=== PATIENT | female | born 1960 | race American Indian/Alaskan Native ===

== ENCOUNTER 2021-11-26 10:55 | Observation (INO) | payer MEDICARE, MEDICAID ==
--- NOTE | 2021-11-26 12:02 | Emergency Department Report ---
HPI - General Chief Complaint: Dyspnea/Respdistress Time Seen by Provider: 11/26/21 11:50 - HPI HPI: The patient just moved from [place] and she has not been able to get dialysis here. The last time she had dialysis was 6 days ago. The patient cur rently feels slightly short of breath but she denies chest pain nausea vomiting fever diarrhea or any other associated symptoms. Exertion makes it worse and rest makes it better. ED Past Medical Hx - Past Medical History Previous Medical History?: Yes Hx Hypertension: Yes Hx Renal Disease: Yes (HD [id number]) Additional medical history: right knee pain - Surgical History Past Surgical History?: Yes Hx Cholecystectomy: Yes Additional Surgical History: Right knee replacement, Thyroidectomy - Social History Smoking Status: Never Smoker Substance Use Type: Prescribed - Medications Home Medications: Home Medications Medication Instructions Recorded Confirmed Last Taken Type B,C/Ferrous Fum/FA/D3/Zinc Ox 1 tab PO QDAY 11/26/21 11/26/21 11/24/21 History [Prorenal Multivitamin Tablet] Calcium Acetate 667 mg PO QDAY 11/26/21 11/26/21 11/24/21 History Losartan [Cozaar] 100 mg PO QDAY 11/26/21 11/26/21 11/24/21 History carvediloL [Coreg] 6.25 mg PO BID 11/26/21 11/26/21 11/24/21 History ED Review of Systems ROS: Stated complaint: NO DIALYSIS SINCE Other details as noted in HPI Comment: All other systems reviewed and negative Physical Exam - Physical Exam Vital Signs: Vital Signs 11/26/21 11:03 Temperature 97.8 F Pulse Rate 90 Respiratory 22 Rate Blood Pressure 210/124 O2 Sat by Pulse 88 Oximetry Physical Exam: Physical Exam Constitutional: General: No acute distress. Appearance: No diaphoresis. HENT: Head: Normocephalic. Eyes: Pupils: Pupils are equal, round, and reactive to light. Neck: Musculoskeletal: Normal range of motion. Cardiovascular: Rate and Rhythm: Normal rate and regular rhythm. Pulses: Intact distal pulses. Heart sounds: Normal heart sounds. No murmur. Pulmonary: Effort: No respiratory distress. Breath sounds: No wheezing or rales. Chest: Chest wall: No tenderness. Abdominal: General: There is no distension. Palpations: There is no mass. Tenderness: There is no abdominal tenderness. There is no guarding or rebound. Musculoskeletal: Normal range of motion. The patient has an intact left arm AV fistula with a thrill. Skin: General: Skin is warm and dry. Neurological: Mental Status: Alert and oriented to person, place, and time. Psychiatric: Mood and Affect: Mood and affect normal. Cognition and Memory: Memory normal. Judgment: Judgment normal. ED Course Vital Signs 11/26/21 11:03 Temperature 97.8 F Pulse Rate 90 Respiratory 22 Rate Blood Pressure 210/124 O2 Sat by Pulse 88 Oximetry - Reevaluation(s) Reevaluation #1: 11/26/21 13:18 The patient was found to have severe hyperkalemia at 7.3. We treated her hyperkalemia. She will need to come to the hospital for hemodialysis. 11/26/21 13:50 EKG done interpreted at 1339 shows a rate of 75, normal the rhythm is sinus rhythm, normal. There is probably left atrial enlargement with LVH and repolarization abnormality. ED Medical Decision Making - Lab Data Result diagrams: 11/26/21 12:20 11/26/21 12:20 Critical care attestation.: If time is entered above; I have spent that time in minutes in the direct care of this critically ill patient, excluding procedure time. ED Disposition Clinical Impression: ESRD (end stage renal disease) on dialysis Disposition: 02 [facility]ORT TERM [facility]OSPITAL Is pt being admited?: Yes Does the pt Need Aspirin: No Condition: Critical Referrals: BRUCE SERRANO MD [Primary Care Provider] - 3-5 Days
--- NOTE | 2021-11-26 12:49 | XRay Report ---
CHEST 1 VIEW 11/26/2021 11:53 AM INDICATION / CLINICAL INFORMATION: Chest Pain. COMPARISON: None available. FINDINGS: SUPPORT DEVICES: None. HEART / MEDIASTINUM: Cardiomegaly LUNGS / PLEURA: Mild interstitial opacities in the lung bases. No pneumothorax. ADDITIONAL FINDINGS: Vascular stent projects over the left scapula. IMPRESSION: 1. Cardiomegaly with mild interstitial opacities favoring pulmonary edema. Signer Name: Ashwin Green MD Signed: 11/26/2021 12:44 PM Workstation Name: [id number]
[2021-11-26 12:53] LABS: Basophils # (Auto) 0.1 K/mm3 (0.0-0.1); Eosinophils # (Auto) 0.3 K/mm3 (0.0-0.4); Eosinophils % (Auto) 5.6 % (0.0-4.3); Hematocrit 33.9 % (30.3-42.9); Hemoglobin 11.2 gm/dl (10.1-14.3); Lymphocytes # (Auto) 1.1 K/mm3 (1.2-5.4); Lymphocytes % (Auto) 20.8 % (13.4-35.0); Mean Corpuscular HGB Conc 33 % (30-34); Mean Corpuscular Volume 96 fl (79-97); Monocytes # (Auto) 0.4 K/mm3 (0.0-0.8); Monocytes % (Auto) 8.4 % (0.0-7.3); Platelet Count 171 K/mm3 (140-440); Red Blood Count 3.54 M/mm3 (3.65-5.03); Red Cell Distribution Width 18.2 % (13.2-15.2)
[2021-11-26 13:10] LABS: Calcium 7.6 mg/dL (8.4-10.2)
[2021-11-26] MEDS ORDERED: SODIUM BICARB 8.4% 50 MEQ/50 ML SYRINGE IV ONE (13:16)
[2021-11-26] MEDS ORDERED: DEXTROSE 50% IN WATER (25GM) 50 ML SYRINGE IV ONE (13:17)
[2021-11-26] MEDS ORDERED: INSULIN REGULAR, HUMAN 100 UNITS/1 ML IV ONE (13:17)
[2021-11-26 13:34] LABS: Chol/HDL Ratio 3.85 %
[2021-11-26] MEDS ORDERED: ACETAMINOPHEN 325 MG TAB PO PRN (13:55)
[2021-11-26] MEDS ORDERED: HYDROcodone/ACETAMINOPHEN 5-325 MG TAB PO PRN (13:55)
[2021-11-26] MEDS ORDERED: ONDANSETRON 4 MG/2 ML INJ IV PRN (13:55)
[2021-11-26] MEDS ORDERED: LOSARTAN 50 MG TAB PO ONE (14:32)
[2021-11-26 16:40] LABS: Hepatitis B Surface Antigen Non-Reactive (Negative); Hepatitis C Virus Antibody Non-Reactive (NonReactive)
[2021-11-26 19:05] VITALS: BP 168/90
[2021-11-27] MEDS ORDERED: ENOXAPARIN 40 MG/0.4 ML INJ SUB-Q SCH (10:00)
--- NOTE | 2021-11-27 15:31 | History and Physical Report ---
History of Present Illness Date of examination: 11/27/21 Date of admission: 11/26/21 13:55 Chief complaint: SOB for 1 day History of present illness: HPI The patient just moved from [place] and she has not been able to get dialysis here. The last time she had dialysis was 6 days ago. The patient currently feels slightly short of breath but she denies chest pain nausea vomiting fever diarrhea or any other associated symptoms. Exertion makes it worse and rest makes it better. - Past Medical History --Hypertension: Yes --Renal Disease: Yes (HD ) --Additional medical history: right knee pain - Surgical History --Past Surgical History?: Yes --Cholecystectomy: Yes --Additional Surgical History: Right knee replacement, Thyroidectomy - Social History --Smoking Status: Never Smoker --Substance Use Type: Prescribed - Medications --Home Medications: Home Medications Medication Instructions Recorded Confirmed Last Taken Type B,C/Ferrous Fum/FA/D3/Zinc Ox 1 tab PO QDAY 11/26/21 11/26/21 11/24/21 History [Prorenal Multivitamin Tablet] Calcium Acetate 667 mg PO QDAY 11/26/21 11/26/21 11/24/21 History Losartan [Cozaar] 100 mg PO QDAY 11/26/21 11/26/21 11/24/21 History carvediloL [Coreg] 6.25 mg PO BID 11/26/21 11/26/21 11/24/21 History Review of Systems ROS: Stated complaint: NO DIALYSIS SINCE Other details as noted in HPI Comment: All other systems reviewed and negative Medications and Allergies Allergies Allergy/AdvReac Type Severity Reaction Status Date / Time YOANNA Inhibitors Allergy Hives Verified 11/26/21 13:17 chlorhexidine Allergy Itching Verified 11/26/21 13:17 latex Allergy Itching Verified 11/26/21 13:17 vancomycin Allergy Hives Verified 11/26/21 13:17 Home Medications Medication Instructions Recorded Confirmed Last Taken Type B,C/Ferrous Fum/FA/D3/Zinc Ox 1 tab PO QDAY 11/26/21 11/26/21 11/24/21 History [Prorenal Multivitamin Tablet] Calcium Acetate 667 mg PO QDAY 11/26/21 11/26/21 11/24/21 History Losartan [Cozaar] 100 mg PO QDAY 11/26/21 11/26/21 11/24/21 History carvediloL [Coreg] 6.25 mg PO BID 11/26/21 11/26/21 11/24/21 History Exam - Constitutional Vitals: Temp Pulse Resp BP Pulse Ox 98.0 F 69 18 168/90 92 11/26/21 18:55 11/26/21 18:55 11/26/21 18:55 11/26/21 21:39 11/26/21 21:33 General appearance: Present: no acute distress, well-nourished - EENT Eyes: Present: PERRL ENT: hearing intact, clear oral mucosa - Neck Neck: Present: supple, normal ROM - Respiratory Respiratory effort: normal Respiratory: bilateral: CTA - Cardiovascular Heart rate: 76 Rhythm: regular Heart Sounds: Present: S1 & S2. Absent: rub, click - Extremities Extremities: no ischemia, pulses symmetrical, No edema Peripheral Pulses: within normal limits - Abdominal General gastrointestinal: Present: soft, non-tender, non-distended, normal bowel sounds Female genitourinary: Present: normal - Integumentary Integumentary: Present: clear, warm, dry - Musculoskeletal Musculoskeletal: gait normal, strength equal bilaterally - Psychiatric Psychiatric: appropriate mood/affect, intact judgment & insight - Neurologic Neurologic: CNII-XII intact, moves all extremities - Allied Health Allied health notes reviewed: nursing, case management HEART Score - HEART Score Age: 45-65 Troponin: Troponin T 0.062 ng/mL (0.00-0.029) H 11/26/21 12:20 - Critical Actions Critical Actions: 4-6 pts:12-16.6% risk of adverse cardiac event. Should be admitted Results - Labs CBC & Chem 7: 11/26/21 12:20 11/26/21 12:20 Labs: Laboratory Last Values WBC 5.3 K/mm3 (4.5-11.0) 11/26/21 12:20 RBC 3.54 M/mm3 (3.65-5.03) L 11/26/21 12:20 Hgb 11.2 gm/dl (10.1-14.3) 11/26/21 12:20 Hct 33.9 % (30.3-42.9) 11/26/21 12:20 MCV 96 fl (79-97) 11/26/21 12:20 MCH 32 pg (28-32) 11/26/21 12:20 MCHC 33 % (30-34) 11/26/21 12:20 RDW 18.2 % (13.2-15.2) H 11/26/21 12:20 Plt Count 171 K/mm3 (140-440) 11/26/21 12:20 Lymph % (Auto) 20.8 % (13.4-35.0) 11/26/21 12:20 [place] % (Auto) 8.4 % (0.0-7.3) H 11/26/21 12:20 Eos % (Auto) 5.6 % (0.0-4.3) H 11/26/21 12:20 Baso % (Auto) 1.0 % (0.0-1.8) 11/26/21 12:20 Lymph # (Auto) 1.1 K/mm3 (1.2-5.4) L 11/26/21 12:20 [place] # (Auto) 0.4 K/mm3 (0.0-0.8) 11/26/21 12:20 Eos # (Auto) 0.3 K/mm3 (0.0-0.4) 11/26/21 12:20 Baso # (Auto) 0.1 K/mm3 (0.0-0.1) 11/26/21 12:20 Seg Neutrophils % 64.2 % (40.0-70.0) 11/26/21 12:20 Seg Neutrophils # 3.4 K/mm3 (1.8-7.7) 11/26/21 12:20 Sodium 136 mmol/L (137-145) L 11/26/21 12:20 Potassium 7.3 mmol/L (3.6-5.0) H* 11/26/21 12:20 Chloride 93.1 mmol/L (98-107) L 11/26/21 12:20 Carbon Dioxide 14 mmol/L (22-30) L 11/26/21 12:20 Anion Gap 36 mmol/L 11/26/21 12:20 BUN 139 mg/dL (7-17) H 11/26/21 12:20 Creatinine 19.4 mg/dL (0.6-1.2) H 11/26/21 12:20 Estimated GFR 2 ml/min 11/26/21 12:20 BUN/Creatinine Ratio 7 % 11/26/21 12:20 Glucose 93 mg/dL (65-100) 11/26/21 12:20 Calcium 7.6 mg/dL (8.4-10.2) L 11/26/21 12:20 Total Bilirubin 0.30 mg/dL (0.1-1.2) 11/26/21 12:20 AST 26 units/L (5-40) 11/26/21 12:20 ALT 21 units/L (7-56) 11/26/21 12:20 Alkaline Phosphatase 146 units/L (35-129) H 11/26/21 12:20 Troponin T 0.062 ng/mL (0.00-0.029) H 11/26/21 12:20 NT-Pro-B Natriuret Pep 46182 pg/mL (0-900) H 11/26/21 12:20 Total Protein 7.2 g/dL (6.3-8.2) 11/26/21 12:20 Albumin 4.0 g/dL (3.9-5) 11/26/21 12:20 Albumin/Globulin Ratio 1.3 % 11/26/21 12:20 Triglycerides 90 mg/dL (2-149) 11/26/21 12:20 Cholesterol 185 mg/dL (50-199) 11/26/21 12:20 LDL Cholesterol Direct 122 mg/dL (50-130) 11/26/21 12:20 HDL Cholesterol 48 mg/dL (40-59) 11/26/21 12:20 Cholesterol/HDL Ratio 3.85 % 11/26/21 12:20 Hep Bs Antigen Non-reactive (Negative) 11/26/21 15:41 Hep B Core IgM Ab Non-reactive (NonReactive) 11/26/21 15:41 Hepatitis C Antibody Non-reactive (NonReactive) 11/26/21 15:41 - Imaging and Cardiology EKG: report reviewed Assessment and Plan Advance Directives: Yes (Full code) VTE prophylaxis?: Chemical Plan of care discussed with patient/family: Yes - Patient Problems (1) Volume overload Status: Acute Plan to address problem: Emergent HD (2) ESRD (end stage renal disease) on dialysis Status: Acute Plan to address problem: Emergent hemodialysis (3) Hyperkalemia Status: Acute Plan to address problem: Emergent hemodialysis with low sodium bath (4) HTN (hypertension) Status: Chronic Qualifiers: Hypertension type: primary hypertension Qualified Code(s): I10 - Essential (primary) hypertension Plan to address problem: Continue antihypertensives (5) DVT prophylaxis Status: Acute Plan to address problem: On heparin and GI prophylaxis
--- NOTE | 2021-11-27 16:13 | Discharge Summary ---
Providers - Providers Date of Admission: 11/26/21 13:55 Date of discharge: 11/26/21 Attending physician: ESTHELA GENAO 11/26/21 13:53 Consult to Physician [CONS] Stat Comment: Consulting Provider: EDY REYNOSO Physician Instructions: Reason For Exam: ESRD w Hyperkalemia Primary care physician: BRUCE SERRANO Hospitalization Condition: Stable Hospital course: The patient just moved from [place] and she has not been able to get dialysis here. The last time she had dialysis was 6 days ago. The patient currently feels slightly short of breath but she denies chest pain nausea vomiting fever diarrhea or any other associated symptoms. Exertion makes it worse and rest makes it better. 11/26/2021 Postdialysis patient feels a lot better Wants to go home Repeat potassium level pending - Imaging and Cardiology EKG: report reviewed Assessment and Plan Advance Directives: Yes (Full code) VTE prophylaxis?: Chemical Plan of care discussed with patient/family: Yes - Patient Problems (1) Volume overload Status: Acute Plan to address problem: Had emergent HD (2) ESRD (end stage renal disease) on dialysis Status: Acute Plan to address problem: Had emergent hemodialysis (3) Hyperkalemia Status: Acute Plan to address problem: had emergent hemodialysis with low sodium bath (4) HTN (hypertension) Status: Chronic Qualifiers: Hypertension type: primary hypertension Qualified Code(s): I10 - Essential (primary) hypertension Plan to address problem: Continue antihypertensives (5) DVT prophylaxis Status: Acute Plan to address problem: On heparin and GI prophylaxis Disposition: 01 HOME / SELF CARE / HOMELESS Final Discharge Diagnosis (Prints w/discharge instructions): Volume overload. End-stage renal disease with hemodialysis. Hypertension. Hyperkalemia Time spent for discharge: 31 minutes - Discharge Diagnoses (1) Volume overload Status: Acute (2) ESRD (end stage renal disease) on dialysis Status: Acute (3) Hyperkalemia Status: Acute (4) HTN (hypertension) Status: Chronic Qualifiers: Hypertension type: primary hypertension Qualified Code(s): I10 - Essential (primary) hypertension (5) DVT prophylaxis Status: Acute Core Measure Documentation - Palliative Care Palliative Care/ Comfort Measures: Not Applicable - Core Measures Any of the following diagnoses?: none Exam - Constitutional Vitals: Temp Pulse Resp BP Pulse Ox 98.0 F 69 18 168/90 92 11/26/21 18:55 11/26/21 18:55 11/26/21 18:55 11/26/21 21:39 11/26/21 21:33 General appearance: Present: no acute distress, well-nourished - EENT Eyes: Present: PERRL ENT: hearing intact, clear oral mucosa - Neck Neck: Present: supple, normal ROM - Respiratory Respiratory effort: normal Respiratory: bilateral: CTA - Cardiovascular Heart rate: 78 Rhythm: regular Heart Sounds: Present: S1 & S2. Absent: rub, click - Extremities Extremities: no ischemia, pulses intact, pulses symmetrical, No edema Peripheral Pulses: within normal limits - Abdominal General gastrointestinal: Present: soft, non-tender, non-distended, normal bowel sounds Female genitourinary: Present: normal - Rectal Rectal Exam: deferred - Integumentary Integumentary: Present: clear, warm, dry - Musculoskeletal Musculoskeletal: gait normal, strength equal bilaterally - Psychiatric Psychiatric: appropriate mood/affect, intact judgment & insight - Neurologic Neurologic: CNII-XII intact, moves all extremities - Allied Health Allied health notes reviewed: nursing, case management Plan Activity: no restrictions Diet: renal Follow up with: BRUCE SERRANO MD [Primary Care Provider] - 3-5 Days EDY REYNOSO MD [Staff Physician] - 7 Days
--- NOTE | 2021-11-27 16:14 | Electrocardiograph Report ---
[facility] Test Date: 2021-11-26 Test Time: 13:39:02 Pat Name: LEON ROMERO Department: Room: A464 Gender: F Stage Driver: [place] : 1960 Requested By: DIVINA VALLEJO Order Number: [id number] Reading MD: Mitchell Lee Measurements Intervals [place] Rate: 75 P: 52 NH: 184 QRS: -14 QRSD: 131 T: 138 QT: 476 QTc: 532 Interpretive Statements Sinus rhythm Probable left atrial enlargement LVH with secondary repolarization abnormality No previous ECG available for comparison Electronically Signed On 11-27-2021 16:14:30 EDT by Mitchell Lee
== END 2021-11-26 21:45 | disposition home or self-care (01) ==
LOC: ED 10:55 → 4A 13:55 → INTOOBSV 13:55 → 4A 15:53
PROVIDERS: ADMIT Internal Medicine; ATTEND Internal Medicine
DX: E87.70 Fluid overload, unspecified (principal); E87.5 Hyperkalemia; I12.0 Hypertensive chronic kidney disease with stage 5 chronic kidney disease or end stage renal disease; N18.6 End stage renal disease; M25.561 Pain in right knee; Z90.49 Acquired absence of other specified parts of digestive tract; Z79.899 Other long term (current) drug therapy; Z98.890 Other specified postprocedural states; Z96.651 Presence of right artificial knee joint; Z99.2 Dependence on renal dialysis
CPT/HCPCS: 36415; 71045; 80053; 80061; 80074; 83880; 84484; 85025; 93005; 99291; G0257; G0378

== ENCOUNTER 2021-12-01 18:09 | Inpatient (IN) | payer MEDICARE, MEDICAID ==
[2021-12-01 22:17] LABS: Albumin 4.4 g/dL (3.9-5)
[2021-12-01 22:31] LABS: Basophils # (Auto) 0.1 K/mm3 (0.0-0.1); Basophils % (Auto) 1.6 % (0.0-1.8); Eosinophils # (Auto) 0.2 K/mm3 (0.0-0.4); Eosinophils % (Auto) 2.9 % (0.0-4.3); Hematocrit 33.7 % (30.3-42.9); Hemoglobin 11.3 gm/dl (10.1-14.3); Lymphocytes # (Auto) 1.1 K/mm3 (1.2-5.4); Lymphocytes % (Auto) 20.6 % (13.4-35.0); Mean Corpuscular HGB Conc 34 % (30-34); Mean Corpuscular Volume 94 fl (79-97); Monocytes # (Auto) 0.3 K/mm3 (0.0-0.8); Monocytes % (Auto) 5.7 % (0.0-7.3); Platelet Count 151 K/mm3 (140-440); Red Blood Count 3.58 M/mm3 (3.65-5.03); Red Cell Distribution Width 18.7 % (13.2-15.2)
[2021-12-01] MEDS ORDERED: CALCIUM CHLORIDE 1,000 MG in SODIUM CHLORIDE 0.9% 100 ML IV ONE ×2 (23:00→23:14)
[2021-12-01] MEDS ORDERED: CALC GLUCONATE 1GM/NS 100 ML 1 GM/100 ML BAG IV ONE (23:00)
[2021-12-01] MEDS ORDERED: DEXTROSE 50% IN WATER (25GM) 50 ML SYRINGE IV ONE (23:14)
[2021-12-01] MEDS ORDERED: INSULIN REGULAR, HUMAN 100 UNITS/1 ML IV ONE (23:14)
[2021-12-01] MEDS ORDERED: hydrALAZINE 20 MG/1 ML INJ IV ONE (23:16)
--- NOTE | 2021-12-01 23:27 | Emergency Department Report ---
ED General Adult HPI - General Chief complaint: High BP Stated complaint: NO DIALYSIS Time Seen by Provider: 12/01/21 23:13 Source: patient Mode of arrival: Ambulatory Limitations: No Limitations - History of Present Illness Initial comments: Patient is 61 years old female with history of end-stage renal disease on hemodialysis. Patient presented to the ER stating that she missed dialysis x2. Patient stated that last dialysis was Sunday. Patient stated that she went to [facility] today and they asking her for more records. Patient presented with s ignificantly elevated blood pressure and shortness of breath. Patient denied any fever or chills. No chest pain. - Related Data Home Medications Medication Instructions Recorded Confirmed Last Taken B,C/Ferrous Fum/FA/D3/Zinc Ox 1 tab PO QDAY 11/26/21 11/26/21 11/24/21 [Prorenal Multivitamin Tablet] Calcium Acetate 667 mg PO QDAY 11/26/21 11/26/21 11/24/21 Losartan [Cozaar] 100 mg PO QDAY 11/26/21 11/26/21 11/24/21 carvediloL [Coreg] 6.25 mg PO BID 11/26/21 11/26/21 11/24/21 Allergies Allergy/AdvReac Type Severity Reaction Status Date / Time YOANNA Inhibitors Allergy Hives Verified 11/26/21 13:17 chlorhexidine Allergy Itching Verified 11/26/21 13:17 latex Allergy Itching Verified 11/26/21 13:17 vancomycin Allergy Hives Verified 11/26/21 13:17 ED Review of Systems ROS: Stated complaint: NO DIALYSIS Other details as noted in HPI Comment: All other systems reviewed and negative Constitutional: denies: chills, fever Respiratory: shortness of breath, SOB with exertion, SOB at rest. denies: cough, wheezing Cardiovascular: denies: chest pain, palpitations Gastrointestinal: denies: abdominal pain, nausea, vomiting Musculoskeletal: denies: back pain Neurological: denies: headache, weakness, numbness, paresthesias, confusion, abnormal gait ED Past Medical Hx - Past Medical History Previous Medical History?: Yes Hx Hypertension: Yes Hx Renal Disease: Yes (HD [id number]) Additional medical history: right knee pain - Surgical History Past Surgical History?: Yes Hx Cholecystectomy: Yes Additional Surgical History: Right knee replacement, Thyroidectomy - Social History Smoking Status: Never Smoker - Medications Home Medications: Home Medications Medication Instructions Recorded Confirmed Last Taken Type B,C/Ferrous Fum/FA/D3/Zinc Ox 1 tab PO QDAY 11/26/21 11/26/21 11/24/21 History [Prorenal Multivitamin Tablet] Calcium Acetate 667 mg PO QDAY 11/26/21 11/26/21 11/24/21 History Losartan [Cozaar] 100 mg PO QDAY 11/26/21 11/26/21 11/24/21 History carvediloL [Coreg] 6.25 mg PO BID 11/26/21 11/26/21 11/24/21 History ED Physical Exam - General Limitations: No Limitations General appearance: alert, in no apparent distress - Head Head exam: Present: atraumatic, normocephalic, normal inspection - Eye Eye exam: Present: normal appearance - ENT ENT exam: Present: normal exam, normal orophraynx, mucous membranes moist - Neck Neck exam: Present: normal inspection, full ROM. Absent: tenderness, meningismus - Respiratory Respiratory exam: Present: normal lung sounds bilaterally - Cardiovascular Cardiovascular Exam: Present: regular rate, normal rhythm, normal heart sounds - GI/Abdominal GI/Abdominal exam: Present: soft, normal bowel sounds. Absent: distended, tenderness, guarding, rebound, rigid, organomegaly, mass, bruit, pulsatile mass, hernia - Extremities Exam Extremities exam: Present: normal inspection, full ROM, normal capillary refill. Absent: tenderness, pedal edema, joint swelling, calf tenderness - Back Exam Back exam: Present: normal inspection, full ROM. Absent: CVA tenderness (R), CVA tenderness (L) - Neurological Exam Neurological exam: Present: alert, oriented X3, CN II-XII intact, normal gait, reflexes normal. Absent: motor sensory deficit - Psychiatric Psychiatric exam: Present: normal mood - Skin Skin exam: Present: warm, intact, normal color ED Course Vital Signs 12/01/21 18:53 Temperature 98.4 F Pulse Rate 78 Respiratory 15 Rate Blood Pressure 189/107 O2 Sat by Pulse 97 Oximetry ED Medical Decision Making - Lab Data Result diagrams: 12/01/21 21:13 12/01/21 21:13 - Radiology Data Radiology results: report reviewed - Medical Decision Making Patient is 61 years old female with history of end-stage renal disease on hemodialysis. Patient presented to the ER stating that she missed dialysis x2. Patient stated that last dialysis was Sunday. Patient stated that she went to [facility] today and they asking her for more records. Patient presented with significantly elevated blood pressure and shortness of breath. Patient denied any fever or chills. No chest pain. Patient found to have a potassium of 7. Patient received dextrose 50, insulin, calcium chloride,. I discussed the patient with Dr. Lozada, design tech on-call and he stated that he would with emergency dialysis order. Patient discussed with Dr. Saha, he agreed to admit the patient to medical service for further management. Critical Care Time: Yes Critical care time in (mins) excluding proc time.: 35 Critical care attestation.: If time is entered above; I have spent that time in minutes in the direct care of this critically ill patient, excluding procedure time. ED Disposition Clinical Impression: Volume overload, End-stage renal disease needing dialysis, Acute hyperkalemia Disposition: 09 ADMITTED INPATIENT Is pt being admited?: Yes Condition: Stable Referrals: BRUCE SERRANO MD [Primary Care Provider] - 3-5 Days
--- NOTE | 2021-12-01 23:56 | Event Note ---
D/W CHANEL COREAS will need HD stat , discussed with CHANEL coreas to have jose daniel nurse call HD nurse for stat HD
[2021-12-01] MEDS ORDERED: SODIUM CHLORIDE 0.9% 100 ML IV PRN (23:57)
--- NOTE | 2021-12-02 | Consultation ---
Medications and Allergies Allergies Allergy/AdvReac Type Severity Reaction Status Date / Time YOANNA Inhibitors Allergy Hives Verified 11/26/21 13:17 chlorhexidine Allergy Itching Verified 11/26/21 13:17 latex Allergy Itching Verified 11/26/21 13:17 vancomycin Allergy Hives Verified 11/26/21 13:17 Home Medications Medication Instructions Recorded Confirmed Last Taken Type B,C/Ferrous Fum/FA/D3/Zinc Ox 1 tab PO QDAY 11/26/21 11/26/21 11/24/21 History [Prorenal Multivitamin Tablet] Calcium Acetate 667 mg PO QDAY 11/26/21 11/26/21 11/24/21 History Losartan [Cozaar] 100 mg PO QDAY 11/26/21 11/26/21 11/24/21 History carvediloL [Coreg] 6.25 mg PO BID 11/26/21 11/26/21 11/24/21 History Active Meds: Active Medications Sodium Chloride (Nacl 0.9%) 100 mls @ 999 mls/hr IV BRANDON PRN PRN Reason: Hypotension Exam - Vital Signs Vital signs: Vital Signs Temp Pulse Resp BP Pulse Ox 98.4 F 78 15 189/107 97 12/01/21 18:53 12/01/21 18:53 12/01/21 18:53 12/01/21 18:53 12/01/21 18:53 Results - Lab Results 12/01/21 21:13 12/01/21 21:13 Most recent lab results Calcium 7.0 mg/dL (8.4-10.2) L 12/01/21 21:13
--- NOTE | 2021-12-02 00:36 | XRay Report ---
CHEST 1 VIEW INDICATION / CLINICAL INFORMATION: chest pain. FINDINGS: SUPPORT DEVICES: None. HEART / MEDIASTINUM: The cardiomediastinal silhouette has not significantly changed in the interim. LUNGS / PLEURA: Moderate bilateral interstitial edema. Signer Name: Cliff Buckley MD Signed: 12/02/2021 12:32 AM Workstation Name: [id number]
[2021-12-02] MEDS ORDERED: ACETAMINOPHEN 325 MG TAB PO PRN (00:54)
[2021-12-02] MEDS ORDERED: MORPHINE 4 MG/1 ML INJ IV PRN (00:54)
[2021-12-02] MEDS ORDERED: MAGNESIUM HYDROXIDE (MOM) ORAL LIQD UDC PO PRN (00:54)
[2021-12-02] MEDS ORDERED: MORPHINE 2 MG/1 ML INJ IV PRN (00:54)
--- NOTE | 2021-12-02 01:02 | History and Physical Report ---
History of Present Illness Date of examination: 12/02/21 Date of admission: 12/02/2021 Chief complaint: End-stage renal disease needing dialysis History of present illness: 61-year-old female with known history of end-stage renal disease on dialysis presents to the emergency room today after missed 2 sessions of dialysis. Last dialysis was on Sunday. Patient gets dialysis on Tuesdays, and Saturdays. She denies any chest pain. No fever or chills. No nausea or vomiting and no abdominal pain. She has however had some shortness of breath. Work-up in the emergency room today, chest x-ray significant for moderate bilateral interstitial edema. Labs significant for hyperkalemia of 7, BUN of 149 and creatinine of 18.7. Calcium of 7.0. Library Supervisor on-call has been consulted by the ER physician for possible dialysis. Past History Past Medical History: dialysis (On Tuesdays, and Saturdays), ESRD, hypertension Past Surgical History: cholecystectomy, Other (Right knee replacement, Thyroidectomy) Social history: no significant social history Family history: no significant family history Medications and Allergies Allergies Allergy/AdvReac Type Severity Reaction Status Date / Time YOANNA Inhibitors Allergy Hives Verified 11/26/21 13:17 chlorhexidine Allergy Itching Verified 11/26/21 13:17 latex Allergy Itching Verified 11/26/21 13:17 vancomycin Allergy Hives Verified 11/26/21 13:17 Home Medications Medication Instructions Recorded Confirmed Last Taken Type B,C/Ferrous Fum/FA/D3/Zinc Ox 1 tab PO QDAY 11/26/21 11/26/21 11/24/21 History [Prorenal Multivitamin Tablet] Calcium Acetate 667 mg PO QDAY 11/26/21 11/26/21 11/24/21 History Losartan [Cozaar] 100 mg PO QDAY 11/26/21 11/26/21 11/24/21 History carvediloL [Coreg] 6.25 mg PO BID 11/26/21 11/26/21 11/24/21 History Active Meds: Active Medications Sodium Chloride (Nacl 0.9%) 100 mls @ 999 mls/hr IV BRANDON PRN PRN Reason: Hypotension Review of Systems Constitutional: no fever, no chills Ears, nose, mouth and throat: no nasal congestion, no sore throat Cardiovascular: no chest pain, no palpitations Respiratory: shortness of breath, no cough, no wheezing Gastrointestinal: no abdominal pain, no nausea, no vomiting, no diarrhea Genitourinary Female: no pelvic pain, no flank pain, no dysuria, no hematuria Musculoskeletal: no neck pain, no low back pain Integumentary: no rash, no pruritis Neurological: no headaches, no confusion Psychiatric: no anxiety, no depression Endocrine: no polyphagia, no polydipsia, no polyuria, no nocturia Exam - Constitutional Vitals: Temp Pulse Resp BP Pulse Ox 98.1 F 79 15 176/104 97 12/02/21 00:49 12/02/21 00:49 12/02/21 00:49 12/02/21 00:49 12/02/21 00:49 General appearance: Present: no acute distress, well-nourished - EENT Eyes: Present: PERRL, EOM intact. Absent: scleral icterus ENT: hearing intact, clear oral mucosa, dentition normal - Neck Neck: Present: supple, normal ROM - Respiratory Respiratory effort: normal Respiratory: bilateral: rales (Few rales bilaterally) - Cardiovascular Rhythm: regular Heart Sounds: Present: S1 & S2, click. Absent: gallop, systolic murmur, diastolic murmur, rub - Extremities Extremities: no ischemia, pulses intact, pulses symmetrical, normal temperature, normal color, Full ROM, abnormal (Left upper extremity AV fistula) Extremity abnormal: edema (2+ bilateral lower extremity edema) Peripheral Pulses: within normal limits - Abdominal General gastrointestinal: Present: soft, non-tender, non-distended, normal bowel sounds. Absent: mass - Integumentary Integumentary: Present: clear, warm, dry, normal turgor. Absent: rash - Musculoskeletal Musculoskeletal: strength equal bilaterally - Psychiatric Psychiatric: appropriate mood/affect, intact judgment & insight, memory intact, cooperative - Neurologic Neurologic: CNII-XII intact, no focal deficits, moves all extremities Results - Labs CBC & Chem 7: 12/01/21 21:13 12/01/21 21:13 Labs: Abnormal lab results 12/01/21 12/01/21 Range/Units 21:13 21:13 RBC 3.58 L (3.65-5.03) M/mm3 RDW 18.7 H (13.2-15.2) % Lymph # (Auto) 1.1 L (1.2-5.4) K/mm3 Potassium 7.0 H* (3.6-5.0) mmol/L Chloride 91.8 L (98-107) mmol/L Carbon Dioxide 20 L (22-30) mmol/L BUN 109 H (7-17) mg/dL Creatinine 18.7 H (0.6-1.2) mg/dL Calcium 7.0 L (8.4-10.2) mg/dL Alkaline Phosphatase 131 H (35-129) units/L Assessment and Plan - Patient Problems (1) End-stage renal disease needing dialysis Current Visit: Yes Status: Acute Plan to address problem: Consult placed to nephrology for evaluation and possible dialysis. Patient has missed 2 sessions of dialysis. (2) Acute hyperkalemia Current Visit: Yes Status: Acute Plan to address problem: Possibly secondary to the end-stage renal disease. Patient scheduled for immediate dialysis. Will monitor potassium level. (3) Volume overload Current Visit: Yes Status: Acute Plan to address problem: Possibly secondary to the missed dialysis. Patient is being scheduled for immediate dialysis. (4) HTN (hypertension) Current Visit: No Status: Chronic Qualifiers: Hypertension type: primary hypertension Qualified Code(s): I10 - Essential (primary) hypertension Plan to address problem: We will resume routine home medications and monitor vital signs closely. (5) Hypocalcemia Current Visit: Yes Status: Acute Plan to address problem: We will replete calcium and monitor chemistry. (6) DVT prophylaxis Current Visit: No Status: Acute Plan to address problem: Patient placed on subcutaneous heparin. (7) Full code status Current Visit: Yes Status: Acute Plan to address problem: Patient is full code.
[2021-12-02] MEDS: HEPARIN 5,000 UNIT/1 ML VIAL SUB-Q SCH ×3 (06:38→22:11)
--- NOTE | 2021-12-02 08:42 | Consultation ---
History of Present Illness - Reason for Consult Consult date: 12/02/21 end stage renal disease, hyperkalemia - History of Present Illness Mrs. Shah is a 62yo with ESRD on HD who presents to the ED up direction of outpatient dialysis clinic as patient has not dialyzed since discharge from [facility] on Sunday. Mrs. Shah recently relocated to [place] was accepted at [facility]. However, per AA, facility is awaiting hepatitis panel and COVID 19 test results Labs notable for K 7.0. Nephrology consulted for management. She is s/p emergent HD overnight. Today, she has no complaints with exception of muscle cramping. Past History Past Medical History: dialysis (On Tuesdays, and Saturdays), ESRD, hypertension Past Surgical History: cholecystectomy, Other (Right knee replacement, Thyroidectomy) Social history: no significant social history Family history: no significant family history Medications and Allergies Allergies Allergy/AdvReac Type Severity Reaction Status Date / Time YOANNA Inhibitors Allergy Hives Verified 11/26/21 13:17 chlorhexidine Allergy Itching Verified 11/26/21 13:17 latex Allergy Itching Verified 11/26/21 13:17 vancomycin Allergy Hives Verified 11/26/21 13:17 Home Medications Medication Instructions Recorded Confirmed Last Taken Type B,C/Ferrous Fum/FA/D3/Zinc Ox 1 tab PO QDAY 11/26/21 11/26/21 11/24/21 History [Prorenal Multivitamin Tablet] Calcium Acetate 667 mg PO QDAY 11/26/21 11/26/21 11/24/21 History Losartan [Cozaar] 100 mg PO QDAY 11/26/21 11/26/21 11/24/21 History carvediloL [Coreg] 6.25 mg PO BID 11/26/21 11/26/21 11/24/21 History Active Meds: Active Medications Acetaminophen (Acetaminophen 325 Mg Tab) 650 mg PO Q4H PRN PRN Reason: Pain MILD(1-3)/Fever >100.5/BROWN Heparin Sodium (Porcine) (Heparin 5,000 Unit/1 Ml Vial) 5,000 unit SUB-Q Q8HR REECE Last Admin: 12/02/21 06:38 Dose: 5,000 unit Sodium Chloride (Nacl 0.9%) 100 mls @ 999 mls/hr IV BRANDON PRN PRN Reason: Hypotension Magnesium Hydroxide (Magnesium Hydroxide (Mom) Oral Liqd Udc) 30 ml PO Q4H PRN PRN Reason: Constipation Morphine Sulfate (Morphine 2 Mg/1 Ml Inj) 2 mg IV Q4H PRN PRN Reason: Pain, Moderate (4-6) Last Admin: 12/02/21 06:44 Dose: 2 mg Morphine Sulfate (Morphine 4 Mg/1 Ml Inj) 4 mg IV Q4H PRN PRN Reason: Pain , Severe (7-10) Ondansetron HCl (Ondansetron 4 Mg/2 Ml Inj) 4 mg IV Q8H PRN PRN Reason: Nausea And Vomiting Sodium Chloride (Sodium Chloride 0.9% 10 Ml Flush Syringe) 10 ml IV BID REECE Sodium Chloride (Sodium Chloride 0.9% 10 Ml Flush Syringe) 10 ml IV PRN PRN PRN Reason: LINE FLUSH Review of Systems All systems: negative Exam - Vital Signs Vital signs: Vital Signs Temp Pulse Resp BP Pulse Ox 98.4 F 78 15 189/107 97 12/01/21 18:53 12/01/21 18:53 12/01/21 18:53 12/01/21 18:53 12/01/21 18:53 - General Appearance General appearance: well-developed, well-nourished Respiratory: Clear to Ascultation Heart: regular, S1S2 Gastrointestinal: Present: normal. Absent: tenderness, distended Integumentary: no rash, warm and dry Psychiatric: cooperative Results - Lab Results 12/01/21 21:13 12/01/21 21:13 Most recent lab results Calcium 7.0 mg/dL (8.4-10.2) L 12/01/21 21:13 Assessment and Plan Impression: * End stage renal disease * Hyperkalemia, severe * Hypertension * Type II DM * Anemia secondary to ESRD * Secondary hyperparathyroidism Plan: * Patient is s/p HD overnight * Hemodialysis today * UF as tolerated * Dose medicatoins for renal function * Epogen TIW prn * Renal/HD diet * Contacted [facility]. Per AA, facility is awaiting hepatitis panel and COVID 19 result. Have ordered COVID 19 PCR. * Consult placed to to fax results of hepatitis panel and COVID 19 * Patient is not cleared for discharge from a renal standpoint until outpatient HD clinic confirmed. Patient w/ readmission for hyperK and at risk for cardiac arrest.
[2021-12-02] MEDS ORDERED: NON-FORMULARY EACH (Calcium Acetate [Calcium Acetate] 667 MG Tablet) PO SCH (10:00)
[2021-12-02] MEDS ORDERED: FERROUS FUM PO SCH (10:00)
[2021-12-02] MEDS ORDERED: NON-FORMULARY EACH (Losartan [Cozaar] 100 MG Tablet) PO SCH (10:00)
[2021-12-02] MEDS ORDERED: D3 PO SCH (10:00)
[2021-12-02] MEDS ORDERED: [UNRECOGNIZED DRUG - OTHER] PO SCH (10:00)
[2021-12-02] MEDS ORDERED: ZINC OX PO SCH (10:00)
[2021-12-02 10:56] LABS: Calcium 8.4 mg/dL (8.4-10.2)
[2021-12-02] MEDS ORDERED: SODIUM CHLORIDE 0.9% 100 ML IV PRN (11:00)
[2021-12-02] MEDS: carvediloL 6.25 MG TAB PO SCH ×2 (11:07→22:11)
[2021-12-02] MEDS: LOSARTAN 50 MG TAB PO SCH (11:07)
[2021-12-02] MEDS: FOLIC ACID/VIT B COMP W-C 1 MG (RENAL CAPS) PO SCH (11:07)
--- NOTE | 2021-12-02 12:12 | Progress Note ---
Assessment and Plan Assessment and plan: #End-stage renal disease requiring dialysis -HD yesterday with 2L of fluid removed -pending finalization of outpatient chair prior to discharge -COVID PCR and acute hepatitis panel ordered -Nephrology following, assistance appreciated #Acute hyperkalemia -Possibly secondary to ESRD -improved s/p HD -will continue to monitor #Volume overload -secondary to missed dialysis -improved #HTN (hypertension) -restarted coreg and losartan at home doses #Hypocalcemia -likely secondary to ESRD -phoslo restarted History Interval history: Patient dialyzed last night. Reports feeling better besides leg cramping. Has no chest pain or shortness of breath at this time. Hospitalist Physical - Physical exam Narrative exam: GENERAL: Well-developed well-nourished. In no acute distress. HEENT: Normocephalic. Atraumatic. CHEST/LUNGS: CTAB on room air HEART/CARDIOVASCULAR: RRR. No murmur, rubs or gallops appreciated. ABDOMEN: +BS. NT/ND. SKIN: No rashes noted. NEURO: No focal motor deficit. Follows all commands. EXTREMITIES: LUE AVF. No cyanosis, clubbing or edema. PSYCH: Cooperative. - Constitutional Vitals: Temp Pulse Resp BP Pulse Ox 97.6 F 69 16 177/91 95 12/02/21 07:35 12/02/21 07:35 12/02/21 07:35 12/02/21 07:35 12/02/21 07:35 General appearance: Present: no acute distress, well-nourished Results - Labs CBC & Chem 7: 12/01/21 21:13 12/02/21 10:03 Labs: Laboratory Last Values WBC 5.2 K/mm3 (4.5-11.0) 12/01/21 21:13 RBC 3.58 M/mm3 (3.65-5.03) L 12/01/21 21:13 Hgb 11.3 gm/dl (10.1-14.3) 12/01/21 21:13 Hct 33.7 % (30.3-42.9) 12/01/21 21:13 MCV 94 fl (79-97) 12/01/21 21:13 MCH 32 pg (28-32) 12/01/21 21:13 MCHC 34 % (30-34) 12/01/21 21:13 RDW 18.7 % (13.2-15.2) H 12/01/21 21:13 Plt Count 151 K/mm3 (140-440) 12/01/21 21:13 Lymph % (Auto) 20.6 % (13.4-35.0) 12/01/21 21:13 [place] % (Auto) 5.7 % (0.0-7.3) 12/01/21 21:13 Eos % (Auto) 2.9 % (0.0-4.3) 12/01/21 21:13 Baso % (Auto) 1.6 % (0.0-1.8) 12/01/21 21:13 Lymph # (Auto) 1.1 K/mm3 (1.2-5.4) L 12/01/21 21:13 [place] # (Auto) 0.3 K/mm3 (0.0-0.8) 12/01/21 21:13 Eos # (Auto) 0.2 K/mm3 (0.0-0.4) 12/01/21 21:13 Baso # (Auto) 0.1 K/mm3 (0.0-0.1) 12/01/21 21:13 Seg Neutrophils % 69.2 % (40.0-70.0) 12/01/21 21:13 Seg Neutrophils # 3.6 K/mm3 (1.8-7.7) 12/01/21 21:13 Sodium 139 mmol/L (137-145) 12/02/21 10:03 Potassium 5.2 mmol/L (3.6-5.0) H D 12/02/21 10:03 Chloride 93.0 mmol/L (98-107) L 12/02/21 10:03 Carbon Dioxide 24 mmol/L (22-30) 12/02/21 10:03 Anion Gap 27 mmol/L 12/02/21 10:03 BUN 53 mg/dL (7-17) H 12/02/21 10:03 Creatinine 11.5 mg/dL (0.6-1.2) H 12/02/21 10:03 Estimated GFR 4 ml/min 12/02/21 10:03 BUN/Creatinine Ratio 5 % 12/02/21 10:03 Glucose 97 mg/dL (65-100) 12/02/21 10:03 Calcium 8.4 mg/dL (8.4-10.2) D 12/02/21 10:03 Total Bilirubin 0.40 mg/dL (0.1-1.2) 12/01/21 21:13 AST 27 units/L (5-40) 12/01/21 21:13 ALT 32 units/L (7-56) 12/01/21 21:13 Alkaline Phosphatase 131 units/L (35-129) H 12/01/21 21:13 Total Protein 7.9 g/dL (6.3-8.2) 12/01/21 21:13 Albumin 4.4 g/dL (3.9-5) 12/01/21 21:13 Albumin/Globulin Ratio 1.3 % 12/01/21 21:13 Dotson/IV: Voiding Method Toilet Active Medications - Current Medications Current Medications: Generic Name Dose Route Start Last Admin Trade Name Freq PRN Reason Stop Dose Admin Acetaminophen 650 mg 12/02/21 00:54 Acetaminophen 325 Mg Tab PO Q4H PRN Pain MILD(1-3)/Fever >100.5/BROWN Calcium Acetate 667 mg 12/02/21 11:00 Calcium Acetate 667 Mg Cap PO QDAY REECE Carvedilol 6.25 mg 12/02/21 10:00 12/02/21 11:07 Carvedilol 6.25 Mg Tab PO 6.25 mg BID REECE Administration Heparin Sodium (Porcine) 5,000 unit 12/02/21 06:00 12/02/21 06:38 Heparin 5,000 Unit/1 Ml Vial SUB-Q 5,000 unit Q8HR REECE Administration Sodium Chloride 100 mls @ 999 mls/hr 12/02/21 11:00 Nacl 0.9% IV BRANDON PRN Hypotension Losartan Potassium 100 mg 12/02/21 11:00 12/02/21 11:07 Losartan 50 Mg Tab PO 100 mg QDAY REECE Administration Magnesium Hydroxide 30 ml 12/02/21 00:54 Magnesium Hydroxide (Mom) Oral Liqd Udc PO Q4H PRN Constipation Morphine Sulfate 2 mg 12/02/21 00:54 12/02/21 06:44 Morphine 2 Mg/1 Ml Inj IV 2 mg Q4H PRN Administration Pain, Moderate (4-6) Morphine Sulfate 4 mg 12/02/21 00:54 Morphine 4 Mg/1 Ml Inj IV Q4H PRN Pain , Severe (7-10) Multivit/Ca Carb/B Cmplx/FA/Prenat 1 cap 12/02/21 11:00 12/02/21 11:07 Folic Acid/Vit B Comp W-C 1 Mg (Renal Caps) PO 1 cap QDAY REECE Administration Ondansetron HCl 4 mg 12/02/21 00:54 Ondansetron 4 Mg/2 Ml Inj IV Q8H PRN Nausea And Vomiting Sodium Chloride 10 ml 12/02/21 10:00 12/02/21 11:07 Sodium Chloride 0.9% 10 Ml Flush Syringe IV 10 ml BID REECE Administration Sodium Chloride 10 ml 12/02/21 00:54 Sodium Chloride 0.9% 10 Ml Flush Syringe IV PRN PRN LINE FLUSH
[2021-12-02] MEDS: ONDANSETRON 4 MG/2 ML INJ IV PRN ×2 (13:19→23:11)
[2021-12-02 14:07] LABS: Hepatitis B Surface Antigen Non-Reactive (Negative); Hepatitis C Virus Antibody Non-Reactive (NonReactive)
[2021-12-02] MEDS: CALCIUM ACETATE 667 MG CAP PO SCH (14:29)
[2021-12-03] MEDS: HEPARIN 5,000 UNIT/1 ML VIAL SUB-Q SCH ×3 (07:00→21:13)
--- NOTE | 2021-12-03 07:56 | Progress Note ---
Assessment and Plan Assessment and plan: #End-stage renal disease requiring dialysis -HD yesterday today -pending finalization of outpatient chair prior to discharge, currently on // schedule -COVID PCR and acute hepatitis panel ordered -Nephrology following, assistance appreciated #Acute hyperkalemia -Possibly secondary to ESRD -improved s/p HD; HD again today -will continue to monitor #Volume overload -secondary to missed dialysis -improved #HTN (hypertension) -restarted coreg and losartan at home doses #Hypocalcemia -likely secondary to ESRD -phoslo restarted #Advanced care planning -Disease education conducted, care plan discussed, diagnoses discussed, prognosis discussed, and patient acknowledges understanding with care plan. Plan to discharge once HD chair is confirmed on Sunday. -Time: +30 min History Interval history: Patient seen during dialysis. She reports improvement in lower extremity cramping. Denies chest pain or shortness of breath. Discussed care plan, patient agreeable. Hospitalist Physical - Physical exam Narrative exam: GENERAL: Well-developed well-nourished. In no acute distress. HEENT: Normocephalic. Atraumatic. CHEST/LUNGS: CTAB on room air HEART/CARDIOVASCULAR: RRR. No murmur, rubs or gallops appreciated. ABDOMEN: +BS. NT/ND. SKIN: No rashes noted. NEURO: No focal motor deficit. Follows all commands. EXTREMITIES: LUE AVF. No cyanosis, clubbing or edema. PSYCH: Cooperative. - Constitutional Vitals: Temp Pulse Resp BP Pulse Ox 98.6 F 63 18 161/88 97 12/03/21 03:54 12/03/21 03:54 12/03/21 03:54 12/03/21 03:54 12/03/21 03:54 General appearance: Present: no acute distress, well-nourished Results - Labs CBC & Chem 7: 12/03/21 07:06 12/03/21 07:06 Labs: Laboratory Last Values WBC 5.2 K/mm3 (4.5-11.0) 12/01/21 21:13 RBC 3.58 M/mm3 (3.65-5.03) L 12/01/21 21:13 Hgb 11.3 gm/dl (10.1-14.3) 12/01/21 21:13 Hct 33.7 % (30.3-42.9) 12/01/21 21:13 MCV 94 fl (79-97) 12/01/21 21:13 MCH 32 pg (28-32) 12/01/21 21:13 MCHC 34 % (30-34) 12/01/21 21:13 RDW 18.7 % (13.2-15.2) H 12/01/21 21:13 Plt Count 151 K/mm3 (140-440) 12/01/21 21:13 Lymph % (Auto) 20.6 % (13.4-35.0) 12/01/21 21:13 [place] % (Auto) 5.7 % (0.0-7.3) 12/01/21 21:13 Eos % (Auto) 2.9 % (0.0-4.3) 12/01/21 21:13 Baso % (Auto) 1.6 % (0.0-1.8) 12/01/21 21:13 Lymph # (Auto) 1.1 K/mm3 (1.2-5.4) L 12/01/21 21:13 [place] # (Auto) 0.3 K/mm3 (0.0-0.8) 12/01/21 21:13 Eos # (Auto) 0.2 K/mm3 (0.0-0.4) 12/01/21 21:13 Baso # (Auto) 0.1 K/mm3 (0.0-0.1) 12/01/21 21:13 Seg Neutrophils % 69.2 % (40.0-70.0) 12/01/21 21:13 Seg Neutrophils # 3.6 K/mm3 (1.8-7.7) 12/01/21 21:13 Sodium 139 mmol/L (137-145) 12/02/21 10:03 Potassium 5.2 mmol/L (3.6-5.0) H D 12/02/21 10:03 Chloride 93.0 mmol/L (98-107) L 12/02/21 10:03 Carbon Dioxide 24 mmol/L (22-30) 12/02/21 10:03 Anion Gap 27 mmol/L 12/02/21 10:03 BUN 53 mg/dL (7-17) H 12/02/21 10:03 Creatinine 11.5 mg/dL (0.6-1.2) H 12/02/21 10:03 Estimated GFR 4 ml/min 12/02/21 10:03 BUN/Creatinine Ratio 5 % 12/02/21 10:03 Glucose 97 mg/dL (65-100) 12/02/21 10:03 Calcium 8.4 mg/dL (8.4-10.2) D 12/02/21 10:03 Total Bilirubin 0.40 mg/dL (0.1-1.2) 12/01/21 21:13 AST 27 units/L (5-40) 12/01/21 21:13 ALT 32 units/L (7-56) 12/01/21 21:13 Alkaline Phosphatase 131 units/L (35-129) H 12/01/21 21:13 Total Protein 7.9 g/dL (6.3-8.2) 12/01/21 21:13 Albumin 4.4 g/dL (3.9-5) 12/01/21 21:13 Albumin/Globulin Ratio 1.3 % 12/01/21 21:13 Hepatitis A IgM Ab Non-reactive (NonReactive) 12/02/21 12:58 Hep Bs Antigen Non-reactive (Negative) 12/02/21 12:58 Hep B Core IgM Ab Non-reactive (NonReactive) 12/02/21 12:58 Hepatitis C Antibody Non-reactive (NonReactive) 12/02/21 12:58 Dotson/IV: Voiding Method Toilet Active Medications - Current Medications Current Medications: Generic Name Dose Route Start Last Admin Trade Name Freq PRN Reason Stop Dose Admin Acetaminophen 650 mg 12/02/21 00:54 Acetaminophen 325 Mg Tab PO Q4H PRN Pain MILD(1-3)/Fever >100.5/BROWN Calcium Acetate 667 mg 12/02/21 11:00 12/02/21 14:29 Calcium Acetate 667 Mg Cap PO 667 mg QDAY REECE Administration Carvedilol 6.25 mg 12/02/21 10:00 12/02/21 22:11 Carvedilol 6.25 Mg Tab PO 6.25 mg BID REECE Administration Heparin Sodium (Porcine) 5,000 unit 12/02/21 06:00 12/02/21 22:11 Heparin 5,000 Unit/1 Ml Vial SUB-Q 5,000 unit Q8HR REECE Administration Sodium Chloride 100 mls @ 999 mls/hr 12/02/21 11:00 Nacl 0.9% IV BRANDON PRN Hypotension Losartan Potassium 100 mg 12/02/21 11:00 12/02/21 11:07 Losartan 50 Mg Tab PO 100 mg QDAY REECE Administration Magnesium Hydroxide 30 ml 12/02/21 00:54 Magnesium Hydroxide (Mom) Oral Liqd Udc PO Q4H PRN Constipation Morphine Sulfate 2 mg 12/02/21 00:54 12/02/21 06:44 Morphine 2 Mg/1 Ml Inj IV 2 mg Q4H PRN Administration Pain, Moderate (4-6) Morphine Sulfate 4 mg 12/02/21 00:54 Morphine 4 Mg/1 Ml Inj IV Q4H PRN Pain , Severe (7-10) Multivit/Ca Carb/B Cmplx/FA/Prenat 1 cap 12/02/21 11:00 12/02/21 11:07 Folic Acid/Vit B Comp W-C 1 Mg (Renal Caps) PO 1 cap QDAY REECE Administration Ondansetron HCl 4 mg 12/02/21 00:54 12/02/21 23:11 Ondansetron 4 Mg/2 Ml Inj IV 4 mg Q8H PRN Administration Nausea And Vomiting Sodium Chloride 10 ml 12/02/21 10:00 12/02/21 22:18 Sodium Chloride 0.9% 10 Ml Flush Syringe IV 10 ml BID REECE Administration Sodium Chloride 10 ml 12/02/21 00:54 Sodium Chloride 0.9% 10 Ml Flush Syringe IV PRN PRN LINE FLUSH
[2021-12-03 08:10] LABS: Calcium 7.5 mg/dL (8.4-10.2)
[2021-12-03 08:23] LABS: Basophils # (Auto) 0.1 K/mm3 (0.0-0.1); Basophils % (Auto) 1.4 % (0.0-1.8); Eosinophils # (Auto) 0.2 K/mm3 (0.0-0.4); Eosinophils % (Auto) 5.4 % (0.0-4.3); Hematocrit 29.3 % (30.3-42.9); Hemoglobin 10.1 gm/dl (10.1-14.3); Lymphocytes # (Auto) 0.9 K/mm3 (1.2-5.4); Lymphocytes % (Auto) 20.4 % (13.4-35.0); Mean Corpuscular HGB Conc 34 % (30-34); Mean Corpuscular Volume 94 fl (79-97); Monocytes # (Auto) 0.4 K/mm3 (0.0-0.8); Monocytes % (Auto) 8.7 % (0.0-7.3); Platelet Count 119 K/mm3 (140-440); Red Blood Count 3.12 M/mm3 (3.65-5.03); Red Cell Distribution Width 17.9 % (13.2-15.2)
--- NOTE | 2021-12-03 10:39 | Progress Note ---
Assessment and Plan Impression: * End stage renal disease * Hyperkalemia, severe * Hypertension * Type II DM * Anemia secondary to ESRD * Secondary hyperparathyroidism Plan: * Patient is s/p HD at admission but did not recieve HD yesterday as ordered * Discussed with office electrician, hemodialysis today following standing MWF orders * UF as tolerated * Dose medicatoins for renal function * Epogen TIW prn * Renal/HD diet * Contacted [facility]. Per AA, facility is awaiting hepatitis panel and COVID 19 result. COVID 19 PCR is pending collection (ordered on Dec 02). Discussed with scraper burrer. * Consult placed to CM to fax results of hepatitis panel and COVID 19 * Patient is not cleared for discharge from a renal standpoint until outpatient HD clinic confirmed. Patient w/ readmission for hyperK and at risk for cardiac arrest. Subjective Date of service: 12/03/21 Interval history: Patient has no complaints today Objective - Vital Signs Vital signs: Vital Signs - 12hr 12/03/21 12/03/21 12/03/21 00:12 03:54 09:30 Temperature 98.2 F 98.6 F 98.4 F Pulse Rate 69 63 73 Respiratory 18 18 16 Rate Blood Pressure 148/82 161/88 170/97 O2 Sat by Pulse 93 97 92 Oximetry - General Appearance General appearance: well-developed, well-nourished EENT: ATNC Respiratory: Present: Clear to Ascultation Cardiology: regular, S1S2 Gastrointestinal: normal, no tenderness, no distended Integumentary: no rash, warm and dry Neurologic: alert and oriented x3 Psychiatric: cooperative - Lab 12/03/21 07:06 12/03/21 07:06 Most recent lab results Calcium 7.5 mg/dL (8.4-10.2) L 12/03/21 07:06 Medications & Allergies - Medications Allergies/Adverse Reactions: Allergies YOANNA Inhibitors Allergy (Verified 11/26/21 13:17) Hives chlorhexidine Allergy (Verified 11/26/21 13:17) Itching latex Allergy (Verified 11/26/21 13:17) Itching vancomycin Allergy (Verified 11/26/21 13:17) Hives Home Medications: Home Medications Medication Instructions Recorded Confirmed Last Taken Type B,C/Ferrous Fum/FA/D3/Zinc Ox 1 tab PO QDAY 11/26/21 12/02/2122 History [Prorenal Multivitamin Tablet] Calcium Acetate 667 mg PO QDAY 11/26/21 12/02/21 11/29/21 History Losartan [Cozaar] 100 mg PO QDAY 11/26/21 12/02/21 11/29/21 History carvediloL [Coreg] 6.25 mg PO BID 11/26/21 12/02/21 11/29/21 History Active Medications: Generic Name Dose Route Start Last Admin Trade Name Freq PRN Reason Stop Dose Admin Acetaminophen 650 mg 12/02/21 00:54 Acetaminophen 325 Mg Tab PO Q4H PRN Pain MILD(1-3)/Fever >100.5/BROWN Calcium Acetate 667 mg 12/02/21 11:00 12/02/21 14:29 Calcium Acetate 667 Mg Cap PO 667 mg QDAY REECE Administration Carvedilol 6.25 mg 12/02/21 10:00 12/02/21 22:11 Carvedilol 6.25 Mg Tab PO 6.25 mg BID REECE Administration Heparin Sodium (Porcine) 5,000 unit 12/02/21 06:00 12/03/21 07:00 Heparin 5,000 Unit/1 Ml Vial SUB-Q 5,000 unit Q8HR REECE Administration Sodium Chloride 100 mls @ 999 mls/hr 12/02/21 11:00 Nacl 0.9% IV BRANDON PRN Hypotension Losartan Potassium 100 mg 12/02/21 11:00 12/02/21 11:07 Losartan 50 Mg Tab PO 100 mg QDAY REECE Administration Magnesium Hydroxide 30 ml 12/02/21 00:54 Magnesium Hydroxide (Mom) Oral Liqd Udc PO Q4H PRN Constipation Morphine Sulfate 2 mg 12/02/21 00:54 12/02/21 06:44 Morphine 2 Mg/1 Ml Inj IV 2 mg Q4H PRN Administration Pain, Moderate (4-6) Morphine Sulfate 4 mg 12/02/21 00:54 Morphine 4 Mg/1 Ml Inj IV Q4H PRN Pain , Severe (7-10) Multivit/Ca Carb/B Cmplx/FA/Prenat 1 cap 12/02/21 11:00 12/02/21 11:07 Folic Acid/Vit B Comp W-C 1 Mg (Renal Caps) PO 1 cap QDAY REECE Administration Ondansetron HCl 4 mg 12/02/21 00:54 12/02/21 23:11 Ondansetron 4 Mg/2 Ml Inj IV 4 mg Q8H PRN Administration Nausea And Vomiting Sodium Chloride 10 ml 12/02/21 10:00 12/02/21 22:18 Sodium Chloride 0.9% 10 Ml Flush Syringe IV 10 ml BID REECE Administration Sodium Chloride 10 ml 12/02/21 00:54 Sodium Chloride 0.9% 10 Ml Flush Syringe IV PRN PRN LINE FLUSH
[2021-12-03] MEDS ORDERED: tiZANidine TAB 4 MG TAB PO PRN (13:32)
[2021-12-03] MEDS: LOSARTAN 50 MG TAB PO SCH (14:02)
[2021-12-03] MEDS: FOLIC ACID/VIT B COMP W-C 1 MG (RENAL CAPS) PO SCH (14:02)
[2021-12-03] MEDS: carvediloL 6.25 MG TAB PO SCH ×2 (14:02→21:13)
[2021-12-03] MEDS: CALCIUM ACETATE 667 MG CAP PO SCH (14:02)
[2021-12-04 06:39] LABS: Calcium 7.4 mg/dL (8.4-10.2)
--- NOTE | 2021-12-04 08:03 | Progress Note ---
Assessment and Plan Assessment and plan: #End-stage renal disease requiring dialysis -HD yesterday -pending finalization of outpatient chair prior to discharge, currently on // schedule -COVID PCR and acute hepatitis panel resulted and negative; will have CM to fax the information in the morning -Nephrology following, assistance appreciated #Acute hyperkalemia -Possibly secondary to ESRD -improved s/p HD -will continue to monitor #Volume overload -secondary to missed dialysis -improved #HTN (hypertension) -restarted coreg and losartan at home doses #Hypocalcemia -likely secondary to ESRD -continue phoslo #Advanced care planning -Disease education conducted, care plan discussed, diagnoses discussed, p rognosis discussed, and patient acknowledges understanding with care plan. Plan to discharge once HD chair is confirmed on Sunday. -Time: +30 min History Interval history: No acute events overnight. Patient has no complaints at this time. Plan to discharge after HD chair finalized. Hospitalist Physical - Physical exam Narrative exam: GENERAL: Well-developed well-nourished. In no acute distress. HEENT: Normocephalic. Atraumatic. CHEST/LUNGS: CTAB on room air HEART/CARDIOVASCULAR: RRR. No murmur, rubs or gallops appreciated. ABDOMEN: +BS. NT/ND. SKIN: No rashes noted. NEURO: No focal motor deficit. Follows all commands. EXTREMITIES: LUE AVF. No cyanosis, clubbing or edema. PSYCH: Cooperative. - Constitutional Vitals: Temp Pulse Resp BP Pulse Ox 98.0 F 63 18 158/93 98 12/04/21 04:16 12/04/21 04:16 12/04/21 04:16 12/04/21 04:16 12/04/21 04:16 General appearance: Present: no acute distress, well-nourished Results - Labs CBC & Chem 7: 12/03/21 07:06 12/04/21 05:43 Labs: Laboratory Last Values WBC 4.2 K/mm3 (4.5-11.0) L 12/03/21 07:06 RBC 3.12 M/mm3 (3.65-5.03) L 12/03/21 07:06 Hgb 10.1 gm/dl (10.1-14.3) 12/03/21 07:06 Hct 29.3 % (30.3-42.9) L 12/03/21 07:06 MCV 94 fl (79-97) 12/03/21 07:06 MCH 32 pg (28-32) 12/03/21 07:06 MCHC 34 % (30-34) 12/03/21 07:06 RDW 17.9 % (13.2-15.2) H 12/03/21 07:06 Plt Count 119 K/mm3 (140-440) L 12/03/21 07:06 Lymph % (Auto) 20.4 % (13.4-35.0) 12/03/21 07:06 Dare % (Auto) 8.7 % (0.0-7.3) H 12/03/21 07:06 Eos % (Auto) 5.4 % (0.0-4.3) H 12/03/21 07:06 Baso % (Auto) 1.4 % (0.0-1.8) 12/03/21 07:06 Lymph # (Auto) 0.9 K/mm3 (1.2-5.4) L 12/03/21 07:06 Dare # (Auto) 0.4 K/mm3 (0.0-0.8) 12/03/21 07:06 Eos # (Auto) 0.2 K/mm3 (0.0-0.4) 12/03/21 07:06 Baso # (Auto) 0.1 K/mm3 (0.0-0.1) 12/03/21 07:06 Seg Neutrophils % 64.1 % (40.0-70.0) 12/03/21 07:06 Seg Neutrophils # 2.7 K/mm3 (1.8-7.7) 12/03/21 07:06 Sodium 135 mmol/L (137-145) L 12/04/21 05:43 Potassium 5.0 mmol/L (3.6-5.0) 12/04/21 05:43 Chloride 92.3 mmol/L (98-107) L 12/04/21 05:43 Carbon Dioxide 27 mmol/L (22-30) 12/04/21 05:43 Anion Gap 21 mmol/L 12/04/21 05:43 BUN 42 mg/dL (7-17) H 12/04/21 05:43 Creatinine 10.2 mg/dL (0.6-1.2) H 12/04/21 05:43 Estimated GFR 5 ml/min 12/04/21 05:43 BUN/Creatinine Ratio 4 % 12/04/21 05:43 Glucose 85 mg/dL (65-100) 12/04/21 05:43 Calcium 7.4 mg/dL (8.4-10.2) L 12/04/21 05:43 Total Bilirubin 0.40 mg/dL (0.1-1.2) 12/01/21 21:13 AST 27 units/L (5-40) 12/01/21 21:13 ALT 32 units/L (7-56) 12/01/21 21:13 Alkaline Phosphatase 131 units/L (35-129) H 12/01/21 21:13 Total Protein 7.9 g/dL (6.3-8.2) 12/01/21 21:13 Albumin 4.4 g/dL (3.9-5) 12/01/21 21:13 Albumin/Globulin Ratio 1.3 % 12/01/21 21:13 SARS-CoV-2 (PCR) Negative (Negative) 12/03/21 08:15 Hepatitis A IgM Ab Non-reactive (NonReactive) 12/02/21 12:58 Hep Bs Antigen Non-reactive (Negative) 12/02/21 12:58 Hep B Core IgM Ab Non-reactive (NonReactive) 12/02/21 12:58 Hepatitis C Antibody Non-reactive (NonReactive) 12/02/21 12:58 Dotson/IV: Voiding Method Toilet Active Medications - Current Medications Current Medications: Generic Name Dose Route Start Last Admin Trade Name Freq PRN Reason Stop Dose Admin Acetaminophen 650 mg 12/02/21 00:54 Acetaminophen 325 Mg Tab PO Q4H PRN Pain MILD(1-3)/Fever >100.5/BROWN Calcium Acetate 667 mg 12/02/21 11:00 12/03/21 14:02 Calcium Acetate 667 Mg Cap PO 667 mg QDAY REECE Administration Carvedilol 6.25 mg 12/02/21 10:00 12/03/21 21:13 Carvedilol 6.25 Mg Tab PO 6.25 mg BID REECE Administration Heparin Sodium (Porcine) 5,000 unit 12/02/21 06:00 12/03/21 21:13 Heparin 5,000 Unit/1 Ml Vial SUB-Q 5,000 unit Q8HR REECE Administration Sodium Chloride 100 mls @ 999 mls/hr 12/02/21 11:00 Nacl 0.9% IV BRANDON PRN Hypotension Losartan Potassium 100 mg 12/02/21 11:00 12/03/21 14:02 Losartan 50 Mg Tab PO 100 mg QDAY REECE Administration Magnesium Hydroxide 30 ml 12/02/21 00:54 Magnesium Hydroxide (Mom) Oral Liqd Udc PO Q4H PRN Constipation Morphine Sulfate 2 mg 12/02/21 00:54 12/02/21 06:44 Morphine 2 Mg/1 Ml Inj IV 2 mg Q4H PRN Administration Pain, Moderate (4-6) Morphine Sulfate 4 mg 12/02/21 00:54 Morphine 4 Mg/1 Ml Inj IV Q4H PRN Pain , Severe (7-10) Multivit/Ca Carb/B Cmplx/FA/Prenat 1 cap 12/02/21 11:00 12/03/21 14:02 Folic Acid/Vit B Comp W-C 1 Mg (Renal Caps) PO 1 cap QDAY REECE Administration Ondansetron HCl 4 mg 12/02/21 00:54 12/02/21 23:11 Ondansetron 4 Mg/2 Ml Inj IV 4 mg Q8H PRN Administration Nausea And Vomiting Sodium Chloride 10 ml 12/02/21 10:00 12/03/21 21:13 Sodium Chloride 0.9% 10 Ml Flush Syringe IV 10 ml BID REECE Administration Sodium Chloride 10 ml 12/02/21 00:54 Sodium Chloride 0.9% 10 Ml Flush Syringe IV PRN PRN LINE FLUSH Tizanidine HCl 4 mg 12/03/21 13:32 Tizanidine Tab 4 Mg Tab PO Q8H PRN Muscle Spasm
[2021-12-04] MEDS: FOLIC ACID/VIT B COMP W-C 1 MG (RENAL CAPS) PO SCH (10:02)
[2021-12-04] MEDS: LOSARTAN 50 MG TAB PO SCH (10:02)
[2021-12-04] MEDS: CALCIUM ACETATE 667 MG CAP PO SCH (10:02)
[2021-12-04] MEDS: carvediloL 6.25 MG TAB PO SCH (10:02)
[2021-12-04 11:26] VITALS: BP 157/96
--- NOTE | 2021-12-04 12:07 | Progress Note ---
Assessment and Plan Impression: * End stage renal disease * Hyperkalemia, severe * Hypertension * Type II DM * Anemia secondary to ESRD * Secondary hyperparathyroidism Plan: * Continue HD MWF - no acute need for dialysis today * UF as tolerated * Dose medicatoins for renal function * Epogen TIW prn * Renal/HD diet * [facility]. Per AA, placement pending hepatitis panel and COVID 19 results. Both have now resulted. * Consult placed to CM to fax results of hepatitis panel and COVID 19; also discussed with charge account clerk today * Stable for discharge from a renal standpoint Subjective Date of service: 12/04/21 Interval history: Patient has no complaints today Objective - Vital Signs Vital signs: Vital Signs - 12hr 12/04/21 12/04/21 12/04/21 04:16 07:24 10:00 Temperature 98.0 F 98.7 F Pulse Rate 63 65 61 Pulse Rate [ 61 Radial] Respiratory 18 18 15 Rate Blood Pressure 158/93 157/92 O2 Sat by Pulse 98 93 99 Oximetry 12/04/21 12/04/21 10:02 11:25 Temperature 97.6 F Pulse Rate 65 62 Pulse Rate [ Radial] Respiratory 16 Rate Blood Pressure 157/92 157/96 O2 Sat by Pulse 92 Oximetry - General Appearance General appearance: well-developed, well-nourished EENT: ATNC Respiratory: Present: Clear to Ascultation Cardiology: regular, S1S2 Gastrointestinal: normal, no tenderness, no distended Integumentary: no rash, warm and dry Neurologic: alert and oriented x3 - Lab 12/03/21 07:06 12/04/21 05:43 Most recent lab results Calcium 7.4 mg/dL (8.4-10.2) L 12/04/21 05:43 Medications & Allergies - Medications Allergies/Adverse Reactions: Allergies YOANNA Inhibitors Allergy (Verified 11/26/21 13:17) Hives chlorhexidine Allergy (Verified 11/26/21 13:17) Itching latex Allergy (Verified 11/26/21 13:17) Itching vancomycin Allergy (Verified 11/26/21 13:17) Hives Home Medications: Home Medications Medication Instructions Recorded Confirmed Last Taken Type B,C/Ferrous Fum/FA/D3/Zinc Ox 1 tab PO QDAY 11/26/21 12/02/21 11/29/21 History [Prorenal Multivitamin Tablet] Calcium Acetate 667 mg PO QDAY 11/26/21 12/02/21 11/29/21 History Losartan [Cozaar] 100 mg PO QDAY 11/26/21 12/02/21 11/29/21 History carvediloL [Coreg] 6.25 mg PO BID 11/26/21 12/02/21 11/29/21 History Active Medications: Generic Name Dose Route Start Last Admin Trade Name Freq PRN Reason Stop Dose Admin Acetaminophen 650 mg 12/02/21 00:54 Acetaminophen 325 Mg Tab PO Q4H PRN Pain MILD(1-3)/Fever >100.5/BROWN Calcium Acetate 667 mg 12/02/21 11:00 12/04/21 10:02 Calcium Acetate 667 Mg Cap PO 667 mg QDAY REECE Administration Carvedilol 6.25 mg 12/02/21 10:00 12/04/21 10:02 Carvedilol 6.25 Mg Tab PO 6.25 mg BID REECE Administration Heparin Sodium (Porcine) 5,000 unit 12/02/21 06:00 12/03/21 21:13 Heparin 5,000 Unit/1 Ml Vial SUB-Q 5,000 unit Q8HR REECE Administration Sodium Chloride 100 mls @ 999 mls/hr 12/02/21 11:00 Nacl 0.9% IV BRANDON PRN Hypotension Losartan Potassium 100 mg 12/02/21 11:00 12/04/21 10:02 Losartan 50 Mg Tab PO 100 mg QDAY REECE Administration Magnesium Hydroxide 30 ml 12/02/21 00:54 Magnesium Hydroxide (Mom) Oral Liqd Udc PO Q4H PRN Constipation Morphine Sulfate 2 mg 12/02/21 00:54 12/02/21 06:44 Morphine 2 Mg/1 Ml Inj IV 2 mg Q4H PRN Administration Pain, Moderate (4-6) Morphine Sulfate 4 mg 12/02/21 00:54 Morphine 4 Mg/1 Ml Inj IV Q4H PRN Pain , Severe (7-10) Multivit/Ca Carb/B Cmplx/FA/Prenat 1 cap 12/02/21 11:00 12/04/21 10:02 Folic Acid/Vit B Comp W-C 1 Mg (Renal Caps) PO 1 cap QDAY REECE Administration Ondansetron HCl 4 mg 12/02/21 00:54 12/02/21 23:11 Ondansetron 4 Mg/2 Ml Inj IV 4 mg Q8H PRN Administration Nausea And Vomiting Sodium Chloride 10 ml 12/02/21 10:00 12/04/21 10:03 Sodium Chloride 0.9% 10 Ml Flush Syringe IV Not Given BID REECE Sodium Chloride 10 ml 12/02/21 00:54 Sodium Chloride 0.9% 10 Ml Flush Syringe IV PRN PRN LINE FLUSH Tizanidine HCl 4 mg 12/03/21 13:32 Tizanidine Tab 4 Mg Tab PO Q8H PRN Muscle Spasm
--- NOTE | 2021-12-04 12:18 | Discharge Summary ---
Providers - Providers Date of Admission: 12/02/21 00:55 Date of discharge: 12/04/21 Attending physician: GARRY ROTHMAN MD 12/01/21 23:52 Consult to Physician [CONS] Stat Comment: Dr. Bond spoke with Dr. 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 Per AA (Maria Eugenia Mckeon), facility is awaiting hepatitis panel and COVID 19 result and patient cannot treat without results. Have ordered COVID 19 PCR today. Please fax results of hepatitis panel (November 26) and COVID 19 Primary care physician: BRUCE SERRANO Hospitalization Condition: Stable Disposition: 30 STILL A PATIENT Exam - Constitutional Vitals: Temp Pulse Resp BP Pulse Ox 97.6 F 62 16 157/96 92 12/04/21 11:25 12/04/21 11:25 12/04/21 11:25 12/04/21 11:25 12/04/21 11:25 Plan Care Plan Goals: Please follow-up with your primary care doctor. We will fax the information needed for you to start dialysis tomorrow. Return to [facility] ([address] [place] [address], ,[facility], [facility]. [id number]) at your regularly scheduled time. Follow up with: BRUCE SERRANO MD [Primary Care Provider] - 3-5 Days
[2021-12-04] MEDS: HEPARIN 5,000 UNIT/1 ML VIAL SUB-Q SCH (13:42)
--- NOTE | 2021-12-05 14:01 | Electrocardiograph Report ---
[facility] Test Date: 2021-12-02 Test Time: 11:48:17 Pat Name: LEON ROMERO Department: Room: A484 Gender: F Non Licensed Operator: FILIBERTO : 1960 Requested By: KIT CHÁVEZ Order Number: [id number] Reading MD: Jean Gilman Measurements Intervals [place] Rate: 74 P: 57 VA: 160 QRS: 5 QRSD: 99 T: 159 QT: 470 QTc: 522 Interpretive Statements Sinus rhythm Left atrial enlargement LVH with secondary repolarization abnormality Prolonged QT interval Compared to ECG 11/26/2021 13:39:02 No significant change Electronically Signed On 12-05-2021 14:01:01 EDT by Jean Gilman
== END 2021-12-04 15:47 | disposition home or self-care (01) | DRG 640 ==
LOC: ED 18:09 → 4A 12-02 00:55
PROVIDERS: ADMIT Internal Medicine Geriatric Medicine; ATTEND Student in an Organized Health Care Education/Training Program
PROC: 5A1D70Z Performance of Urinary Filtration, Intermittent, Less than 6 Hours Per Day (ICD-10-PCS; 2021-12-02)
PROC: 5A1D70Z Performance of Urinary Filtration, Intermittent, Less than 6 Hours Per Day (ICD-10-PCS; principal; 2021-12-03)
DX: E87.5 Hyperkalemia (principal); N18.6 End stage renal disease; I12.0 Hypertensive chronic kidney disease with stage 5 chronic kidney disease or end stage renal disease; N25.81 Secondary hyperparathyroidism of renal origin; D63.1 Anemia in chronic kidney disease; E87.70 Fluid overload, unspecified; E83.51 Hypocalcemia; E11.22 Type 2 diabetes mellitus with diabetic chronic kidney disease; Z20.822 Contact with and (suspected) exposure to COVID-19; Z99.2 Dependence on renal dialysis; Z90.49 Acquired absence of other specified parts of digestive tract
CPT/HCPCS: 36415; 71045; 80048; 80053; 80074; 85025; 93005; G0378; J3490; Q9967; J0360; J0610; J1644; J1815; J2270; J2405; U0003